=== PATIENT | male | born 2000 | race African-American/Black ===

== ENCOUNTER 2022-02-24 22:44 | Emergency (ER) | payer OTHER ==
[~2022-02-24] VITALS: Ht 188 cm; Wt 111.4 kg
[2022-02-24 22:53] VITALS: BP 138/99; PULSE 117; TEMP 98.9
== END 2022-02-25 | disposition left against medical advice (07) ==
LOC: COL.ER 22:44
DX: S06.9X9A Unspecified intracranial injury with loss of consciousness of unspecified duration, initial encounter (principal); S00.03XA Contusion of scalp, initial encounter; V00.831A Fall from motorized mobility scooter, initial encounter; Y93.I9 Activity, other involving external motion; Y92.410 Unspecified street and highway as the place of occurrence of the external cause

== ENCOUNTER 2022-02-25 00:31 | Emergency (ER) | payer OTHER ==
[2022-02-25 02:02] VITALS: TEMP 99
[2022-02-25 03:37] VITALS: BP 131/89; PULSE 96
== END 2022-02-25 03:51 | disposition short-term general hospital (02) ==
LOC: COL.ER 00:31
DX: S06.9X9A Unspecified intracranial injury with loss of consciousness of unspecified duration, initial encounter (principal); S06.6X9A Traumatic subarachnoid hemorrhage with loss of consciousness of unspecified duration, initial encounter; X58.XXXA Exposure to other specified factors, initial encounter
CPT/HCPCS: J1953